=== PATIENT | female | born 1945 | race Caucasian/White ===

== ENCOUNTER → 2017-07-06 | Outpatient (CLI) | payer MEDICARE, OTHER ==
[~2017-07-06] MED LIST: ACET500L36 PO; AMLO5TAB2 PO; BANA1PAC PEG; CHLO15MO3 MM; CHOL100045 PO; CITA20TA7 PO; CNC1KV IM; CYAN100081 PO; DEEP SEA NASAL SPRAY; DIPH1TAB25 PO; DIPH25TA82 IVF; ENXP40I.4 SC; ERGO400C PO; FLUT16SP22 NS; GLUC1KIT4 IJ; GUAI100L13 PO; HYDR-34 PO; KCL20TCR PO; LABE5VIA INJ; LACT1CAP45; MAGN400T6 PO; MENT71OI TP; METO100T PO; METO100T2 PO; METR500T PO; MULT1TAB69 PO; MULTIVITAMINS PO; NEOM28.34 TP; NF-ESOM40C PEG; NYST1000 PO; ONDA2VIA3 IV; PEG250PW PO; PNT40TEC PO; PSYL1PAC15 PEG; TRAM50TA2 PO; WATER FLUSH PEG; [UNRECOGNIZED DRUG - OTHER] PEG
--- NOTE | 2017-07-06 13:16 | Diagnostic Imaging Report ---
PROCEDURE: US Thyroid. TECHNIQUE: Multiple real-time grayscale images were obtained of the thyroid in various projections. INDICATION: History of left thyroidectomy, thyroid nodules. COMPARISON: 02/19/2016. FINDINGS: Left thyroid is surgically absent. The right thyroid measures 4 x 1.2 x 1.6 cm. Again seen are multiple solid thyroid nodules with some calcification. Overall, the size and appearance is unchanged from the prior examination. IMPRESSION: 1. Stable-appearing right-sided thyroid nodules. No significant change identified. Additional six-month follow-up recommended. 2. Surgically absent left thyroid lobe. Dictated by: Dictated on workstation # [id number]
== END ==
LOC: RAD 10:34
PROVIDERS: ATTEND Nurse Practitioner Family
DX: E04.2 Nontoxic multinodular goiter (principal); E89.0 Postprocedural hypothyroidism
CPT/HCPCS: 76536

== ENCOUNTER → 2019-07-17 | Outpatient (CLI) | payer MEDICARE ==
[~2019-07-17] MED LIST changes: -CITA20TA7 PO; +CITA20TA9 PO; -TRAM50TA2 PO; +TRM50T PO
--- NOTE | 2019-07-19 11:44 | Diagnostic Imaging Report ---
EXAM: Digital mammogram bilateral screening COMPARISON: 07/10/2012. There are no current complaints. The fibroglandular tissue in both breasts is heterogeneously dense. This does limit the sensitivity of this exam. The 1 cm nodular density in the lateral aspect of the right breast seen on the previous study has resolved. However in the interval since the previous study, a 7 mm asymmetry has developed in the midportion of the left breast approximately 6 cm from the nipple. I would recommend that a compression view of this area be obtained in the CC and ML projections for further study. Ultrasound should also be performed. In addition, there is the suggestion of another neodensity in the 6 o'clock position of the right breast roughly 5 cm from the nipple. This measures approximately 7 mm in size, as well. This area should also be compressed in the CC and MLO projections. Ultrasound of the right breast would also be recommended. The overall appearance of the breasts has not changed significantly otherwise. There is no primary or secondary sign of malignancy noted. IMPRESSION: Additional mammographic views and ultrasound of both breasts would be recommended for further study. ACR category 0 ACR BI-RADS Category 0: Incomplete. (Needs additional imaging evaluation). Result letter will be mailed to the patient. Note: At least 10% of breast cancer is not imaged by mammography. Dictated on workstation # [id number]
== END ==
LOC: RAD 12:46
PROVIDERS: ATTEND Internal Medicine
DX: Z12.31 Encounter for screening mammogram for malignant neoplasm of breast (principal); N63.15 Unspecified lump in the right breast, overlapping quadrants; N63.20 Unspecified lump in the left breast, unspecified quadrant
CPT/HCPCS: 77067

== ENCOUNTER → 2021-08-30 | Outpatient (CLI) | payer MEDICARE ==
[~2021-08-30] MED LIST changes: +MULT-567 PO; -MULT1TAB69 PO
--- NOTE | 2021-08-30 15:54 | Diagnostic Imaging Report ---
Indication: Routine screening. Correlation is made with prior mammograms of 07/17/2019 and 07/10/2012. 2-D and 3-D bilateral screening mammography was performed with CAD. Both breasts are heterogeneously dense, limiting the sensitivity of mammography. No dominant mass or malignant-appearing microcalcifications are seen. Axillae are unremarkable. IMPRESSION: BI-RADS Category 1 No mammographic features suspicious for malignancy are identified. ACR BI-RADS Category 1: Negative. Result letter will be mailed to the patient. Note: At least 10% of breast cancer is not imaged by mammography. Dictated by: Dictated on workstation # [id number]
== END ==
LOC: RAD 09:45
PROVIDERS: ATTEND Internal Medicine
DX: Z12.31 Encounter for screening mammogram for malignant neoplasm of breast (principal)
CPT/HCPCS: 77063; 77067

== ENCOUNTER → 2021-11-23 | Outpatient (CLI) | payer MEDICARE ==
--- NOTE | 2021-11-23 10:28 | Diagnostic Imaging Report ---
INDICATION: History of jaundice. Followup for biliary stent. FINDINGS: The KUB does show a stent present appearing to be within the common bile duct and extending into the duodenum. The overall position appears good. The bowel gas pattern appears normal. IMPRESSION: Satisfactory appearing biliary stent position in the right upper quadrant. Dictated by: Dictated on workstation # [id number]
== END ==
LOC: RAD 09:26
PROVIDERS: ATTEND Internal Medicine Gastroenterology
DX: R93.3 Abnormal findings on diagnostic imaging of other parts of digestive tract (principal); Z87.19 Personal history of other diseases of the digestive system; Z96.89 Presence of other specified functional implants
CPT/HCPCS: 74018

== ENCOUNTER → 2022-12-07 | Outpatient (CLI) | payer MEDICARE, OTHER ==
[~2022-12-07] MED LIST changes: +BARIUM for suspension 96% w/w (Vanilla Silq Medium Density) PO ONE; +BARIUM for suspension 98% w/w (Vanilla Silq High Density) PO ONE
--- NOTE | 2022-12-07 15:03 | Diagnostic Imaging Report ---
INDICATION: Prior gastric bypass surgery. Patient also underwent a biliary stent removal. The patient ingested effervescent crystals as well as thin and thick barium and imaging of the esophagus, stomach and proximal small bowel was performed. Total of 97 seconds fluoroscopic time was utilized. 24 images were obtained. Reference air kerma is 81.2 mGy. Preliminary radiograph of the abdomen does show a right convexity lumbar scoliotic curvature. Bowel gas pattern is unremarkable. There are surgical clips in the right abdomen. Esophagus has a fairly smooth contour. Contrast appears to flow immediately into the gastric pouch and small bowel loops. There does appear to be a small extension of contrast from the pouch towards the left, filling the excluded portion of the stomach. The visualized small bowel loops in the left upper quadrant are unremarkable. IMPRESSION: Upper GI demonstrating communication of the gastric pouch with the excluded portion of the stomach. The excluded portion did fill completely with contrast. Dictated by: Dictated on workstation # [id number]
--- NOTE | 2022-12-07 15:07 | Diagnostic Imaging Report ---
INDICATION: Prior gastric bypass surgery. Serial radiographs of the abdomen are obtained after patient ingested thin and thick barium. There is contrast throughout small bowel. Contrast is seen within the gastric pouch as well as the excluded portion of the stomach. There is filling of the biliary tree with contrast. Mucosal fold pattern is unremarkable. There are some mildly dilated small bowel loops in the central abdomen. Contrast did reach the right colon at 2 hours. No obstruction is seen. IMPRESSION: Contrast dose communicated from the gastric pouch to the excluded portion of the stomach. There is opacification of portions of the biliary tree with oral contrast as well. No small bowel obstruction is seen. Dictated by: Dictated on workstation # [id number]
== END ==
LOC: RAD 09:45
PROVIDERS: ATTEND Internal Medicine Gastroenterology
DX: K31.6 Fistula of stomach and duodenum (principal); Z98.84 Bariatric surgery status
CPT/HCPCS: 74246; 74248